=== PATIENT | female | born 2000 | race Caucasian/White ===

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

== ENCOUNTER 2021-04-02 10:22 | Emergency (ER) | payer BC ==
[~2021-04-02] VITALS: Ht 157.5 cm; Wt 65.9 kg
[~2021-04-02 10:22] MED LIST: CIPR-249 PO; PYRI1TAB5 PO; ZOLO50TA PO
--- OUTSIDE RECORDS SUMMARY | 2021-04-02 10:31 | CCD ---
Author Author [facility] Organization [facility] Address Unknown Phone Unavailable Care Team Providers Care Director Of Curriculum And Instruction Name Role Phone Aguiar, M Wilda PA-C Unavailable Unavailable Agiuar, M Wilda PA-C Unavailable Unavailable Aguiar, M Wilda PA-C Unavailable Unavailable Aguiar, M Wilda PA-C Unavailable Unavailable Aguiar, M Wilda PA-C Unavailable Unavailable Aguiar, M Wilda PA-C Unavailable Unavailable Aguiar, M Wilda PA-C Unavailable Unavailable Aguiar, M Wilda PA-C Unavailable Unavailable Aguiar, M Wilda PA-C Unavailable Unavailable Aguiar, M Wilda PA-C Unavailable Unavailable Aguiar, M Wilda PA-C Unavailable Unavailable Aguiar, M Wilda PA-C Unavailable Unavailable Aguiar, M Wilda PA-C Unavailable Unavailable Aguiar, M Wilda PA-C Unavailable Unavailable Aguiar, M Wilda PA-C Unavailable Unavailable Aguiar, M Wilda PA-C Unavailable Unavailable Aguiar, M Wilda PA-C Unavailable Unavailable Aguiar, M Wilda PA-C Unavailable Unavailable Aguiar, M Wilda PA-C Unavailable Unavailable Aguiar, M Wilda PA-C Unavailable Unavailable Aguiar, M Wilda PA-C Unavailable Unavailable Aguiar, M Wilda PA-C Unavailable Unavailable Aguiar, M Wilda PA-C Unavailable Unavailable Aguiar, M Wilda PA-C Unavailable Unavailable Aguiar, M Wilda PA-C Unavailable Unavailable Aguiar, M Wilda PA-C Unavailable Unavailable Aguiar, M Wilda PA-C Unavailable Unavailable Aguiar, M Wilda PA-C Unavailable Unavailable Aguiar, M Wilda PA-C Unavailable Unavailable Aguiar, M Wilda PA-C Unavailable Unavailable Aguiar, M Wilda PA-C Unavailable Unavailable Aguiar, M Wilda PA-C Unavailable Unavailable Aguiar, M Wilda PA-C Unavailable Unavailable Aguiar, M Wilda PA-C Unavailable Unavailable Aguiar, M Wilda PA-C Unavailable Unavailable Aguiar, M Wilda PA-C Unavailable Unavailable Aguiar, M Wilda PA-C Unavailable Unavailable Aguiar, M Wilda PA-C Unavailable Unavailable EDUARDA MUÑOZ MD Unavailable Unavai lable EDUARDA MUÑOZ MD Unavailable Unavai lable EDUARDA MUÑOZ MD Unavailable Unavai lable EDUARDA MUÑOZ MD Unavailable Unavai lable EDUARDA MUÑOZ MD Unavailable Unavai lable EDUARDA MUÑOZ MD Unavailable Unavai lable EDUARDA MUÑOZ MD Unavailable Unavai lable EDUARDA MUÑOZ MD Unavailable Unavai lable EDUARDA MUÑOZ MD Unavailable Unavai lable EDUARDA MUÑOZ MD Unavailable Unavai lable EDUARDA MUÑOZ MD Unavailable Unavai lable EDUARDA MUÑOZ MD Unavailable Unavai lable EDUARDA MUÑOZ MD Unavailable Unavai lable EDUARDA MUÑOZ MD Unavailable Unavai lable EDUARDA MUÑOZ MD Unavailable Unavai lable EDUARDA MUÑOZ MD Unavailable Unavai lable EDUARDA MUÑOZ MD Unavailable Unavai lable EDUARDA MUÑOZ MD Unavailable Unavai lable EDUARDA MUÑOZ MD Unavailable Unavai lable EDUARDA MUÑOZ MD Unavailable Unavai lable EDUARDA MUÑOZ MD Unavailable Unavai lable EDUARDA MUÑOZ MD Unavailable Unavai lable TONI, EDUARDA DERAS MD Unavailable Lise MUÑOZ, EDUARDA DERAS MD Unavailable Lise MUÑOZ, EDUARDA DERAS MD Unavailable Unavai lable Feola, T Gretel PA Unavailable Unavailable Feola, T Gretel PA Unavailable Unavailable Feola, T Gretel PA Unavailable Unavailable Feola, T Gretel PA Unavailable Unavailable Feola, T Gretel PA Unavailable Unavailable Feola, T Gretel PA Unavailable Unavailable Feola, T Gretel PA Unavailable Unavailable Feola, T Gretel PA Unavailable Unavailable Feola, T Gretel PA Unavailable Unavailable Feola, T Gretel PA Unavailable Unavailable Feola, T Gretel PA Unavailable Unavailable Feola, T Gretel PA Unavailable Unavailable Feola, T Gretel PA Unavailable Unavailable Feola, T Gretel PA Unavailable Unavailable Feola, T Gretel PA Unavailable Unavailable Feola, T Gretel PA Unavailable Unavailable Feola, T Gretel PA Unavailable Unavailable Feola, T Gretel PA Unavailable Unavailable Feola, T Gretel PA Unavailable Unavailable Feola, T Gretel PA Unavailable Unavailable Feola, T Gretel PA Unavailable Unavailable Feola, T Gretel PA Unavailable Unavailable Feola, T Gretel PA Unavailable Unavailable Feola, T Gretel PA Unavailable Unavailable Feola, T Gretel PA Unavailable Unavailable Feola, T Gretel PA Unavailable Unavailable Feola, T Gretel PA Unavailable Unavailable Feola, T Gretel PA Unavailable Unavailable Feola, T Gretel PA Unavailable Unavailable Feola, T Gretel PA Unavailable Unavailable Feola, T Gretel PA Unavailable Unavailable Feola, T Gretel PA Unavailable Unavailable Feola, T Gretel PA Unavailable Unavailable Feola, T Gretel PA Unavailable Unavailable Feola, T Gretel PA Unavailable Unavailable Feola, T Gretel PA Unavailable Unavailable Feola, T Gretel PA Unavailable Unavailable Feola, T Gretel PA Unavailable Unavailable Feola, T Gretel PA Unavailable Unavailable Feola, T Gretel PA Unavailable Unavailable Feola, T Gretel PA Unavailable Unavailable SEYMOUR, G EDWARD RPA Unavailable Unavailable SEYMOUR, G EDWARD RPA Unavailable Unavailable SEYMOUR, G EDWARD RPA Unavailable Unavailable SEYMOUR, G EDWARD RPA Unavailable Unavailable SEYMOUR, G EDWARD RPA Unavailable Unavailable SEYMOUR, G EDWARD RPA Unavailable Unavailable SEYMOUR, G EDWARD RPA Unavailable Unavailable SEYMOUR, G EDWARD RPA Unavailable Unavailable SEYMOUR, G EDWARD RPA Unavailable Unavailable SEYMOUR, G EDWARD RPA Unavailable Unavailable SEYMOUR, G EDWARD RPA Unavailable Unavailable SEYMOUR, G EDWARD RPA Unavailable Unavailable SEYMOUR, G EDWARD RPA Unavailable Unavailable SEYMOUR, G EDWARD RPA Unavailable Unavailable SEYMOUR, G EDWARD RPA Unavailable Unavailable SEYMOUR, G EDWARD RPA Unavailable Unavailable SEYMOUR, G EDWARD RPA Unavailable Unavailable SEYMOUR, G EDWARD RPA Unavailable Unavailable SEYMOUR, G EDWARD RPA Unavailable Unavailable SEYMOUR, G EDWARD RPA Unavailable Unavailable SEYMOUR, G EDWARD RPA Unavailable Unavailable SEYMOUR, G EDWARD RPA Unavailable Unavailable SEYMOUR, G EDWARD RPA Unavailable Unavailable SEYMOUR, G EDWARD RPA Unavailable Unavailable SEYMOUR, G EDWARD RPA Unavailable Unavailable SEYMOUR, G EDWARD RPA Unavailable Unavailable SEYMOUR, G EDWARD RPA Unavailable Unavailable SEYMOUR, G EDWARD RPA Unavailable Unavailable SEYMOUR, G EDWARD RPA Unavailable Unavailable SEYMOUR, G EDWARD RPA Unavailable Unavailable SEYMOUR, G EDWARD RPA Unavailable Unavailable SEYMOUR, G EDWARD RPA Unavailable Unavailable SEYMOUR, G EDWARD RPA Unavailable Unavailable SEYMOUR, G EDWARD RPA Unavailable Unavailable SEYMOUR, G EDWARD RPA Unavailable Unavailable GARIMA, L YUE MD Unavailable Unavailable GARIMA, L YUE MD Unavailable Unavailable GARIMA, L YUE MD Unavailable Unavailable GARIMA, L YUE MD Unavailable Unavailable GARIMA, L YUE MD Unavailable Unavailable GARIMA, L YUE MD Unavailable Unavailable GARIMA, L YUE MD Unavailable Unavailable GARIMA, L YUE MD Unavailable Unavailable GARIMA, L YUE MD Unavailable Unavailable GARIMA, L YUE MD Unavailable Unavailable GARIMA, L YUE MD Unavailable Unavailable GARIMA, L YUE MD Unavailable Unavailable GARIMA, L YUE MD Unavailable Unavailable GARIMA, L YUE MD Unavailable Unavailable GARIMA, L YUE MD Unavailable Unavailable GARIMA, L YUE MD Unavailable Unavailable GARIMA, L YUE MD Unavailable Unavailable GARIMA, L YUE MD Unavailable Unavailable GARIMA, L YUE MD Unavailable Unavailable GARIMA, L YUE MD Unavailable Unavailable Re-disclosure Warning The records that you are about to access may contain information from federally-assisted alcohol or drug abuse programs. If such information is present, then the following federally mandated warning applies: This information has been disclosed to you from records protected by federal confidentiality rules (42 CFR part 2). The federal rules prohibit you from making any further disclosure of this information unless further disclosure is expressly permitted by the written consent of the person to whom it pertains or as otherwise permitted by 42 CFR part 2. A general authorization for the release of medical or other information is NOT sufficient for this purpose. The Federal rules restrict any use of the information to criminally investigate or prosecute any alcohol or drug abuse patient.The records that you are about to access may contain highly sensitive health information, the redisclosure of which is protected by Article 27-F of the [facility] Public Health law. If you continue you may have access to information: Regarding HIV / AIDS; Provided by facilities licensed or operated by the [facility] Office of Mental Health; or Provided by the [facility] Office for People With Developmental Disabilities. If such information is present, then the following [facility] mandated warning applies: This information has been disclosed to you from confidential records which are protected by state law. State law prohibits you from making any further disclosure of this information without the specific written consent of the person to whom it pertains, or as otherwise permitted by law. Any unauthorized further disclosure in violation of state law may result in a fine or usp sentence or both. A general authorization for the release of medical or other information is NOT sufficient authorization for further disc losure. Allergies and Adverse Reactions Type Description Substance Reaction Status Data Source(s ) Propensity to adverse reactions BACTRIM BACTRIM ANAPHYLAXIS [facility] Propensity to adverse reactions SULFA (sulfonamide) SULFA (sulfo namide) ANAPHYLAXIS [facility] Family History Family Member Name Family Member Gender Family Member Status Date o f Status Description Data Source(s) Unknown Male Problem [facility] ([facility]) Encounters Encounter Providers Location Date Indications Data Source(s ) Outpatient Attender: Wilda BALDWIN-CConsultant: AUGUSTA MITCHELL MD 10/16/2020 06:53:00 PM EDT - 10/16/2020 07:53:00 PM EDT [facility] Outpatient Attender: PAUL SEYMOUR RPA 10/12 03:36:20 PM EDT - 10/12/2020 04:13:08 PM EDT [facility] ([facility] ) Outpatient Attender: Gretel BALDWIN 02:42:42 PM EST - 08/18/2020 03:41:54 PM EST [facility] ([facility] ) Outpatient Attender: Wilda GAYTANCConsultant: AUGUSTA MITCHELL MD 08/01/2020 01:07:00 PM EST - 08/01/2020 01:07:00 PM [facility] Outpatient Attender: Wilda GAYTANCConsultant: AUGUSTA MITCHELL MD 06/02/2020 04:36:00 PM EST - 06/02/2020 05:36:00 PM [facility] Outpatient Attender: Wilda GAYTANCConsultant: AUGUSTA MITCHELL MD 05/30/2020 02:47:00 PM EST - 05/30/2020 02:47:00 PM [facility] Emergency Attender: YUE PAINTING MDConsultant: AUGUSTA DIALLO MD 02/23/2020 05:02:00 PM EDT - 02/23/2020 05:40:00 PM EDT [facility] Patient discharged. Immunizations Vaccine Date Status Description Data Source(s) COVID-19 VACCINE Moderna 03/03/2021 12:00:00 AM EDT completed [facility] Vaccine Series Complete: NOThis Data was Submitted to [facility] Via [employer]. Medications Medication Brand Name Start Date Product Form Dose Route Admi nistrative Instructions Pharmacy Instructions Status Indications Reaction Description Data Source(s) 875-125 mg 02/23/2020 12:00:00 AM EDT tablet 20 TAKE ONE TABLET BY MOUTH TWICE A DAY TAKE ONE TABLET BY MOUTH TWICE A DAY SOLD: 02/24/2020 [facility] 1.5 mg-30 mcg (21)/75 mg (7) 01/10/2020 12:00:00 AM EDT tabl et 28 TAKE 1 TABLET BY MOUTH ONCE DAILY FOR 21 DAYS, OFF THE 4TH WEEK TO CYCLE TAKE 1 TABLET BY MOUTH ONCE DAILY FOR 21 DAYS, OFF THE 4TH WEEK TO CYCLE SOLD: 02/13/2020 [facility] DORA Fe 1.5/30 28 Day Pack 1.5 mg-30 mcg (21)/75 mg ( 7) NORETHINDRONE-E.ESTRADIOL-IRON 01/10/2020 12:00:00 AM EDT tablet 28 TAKE 1 TABLET BY MOUTH ONCE DAILY FOR 21 DAYS, OFF THE 4TH WEEK TO CYCLE TAKE 1 TABLET BY MOUTH ONCE DAILY FOR 21 DAYS, OFF THE 4TH WEEK TO CYCLE SOLD: 10/16/2020 [facility] 1.5 mg-30 mcg (21)/75 mg (7) 01/10/2020 12:00:00 AM EDT tabl et 28 TAKE 1 TABLET BY MOUTH ONCE DAILY FOR 21 DAYS, OFF THE WEEK TO CYCLE TAKE 1 TABLET BY MOUTH ONCE DAILY FOR 21 DAYS, OFF THE WEEK TO CYCLE SOLD: 03/17/2020 [facility] 1.5 mg-30 mcg (21)/75 mg (7) 01/10/2020 12:00:00 AM EDT tabl et 28 TAKE 1 TABLET BY MOUTH ONCE DAILY FOR 21 DAYS, OFF THE WEEK TO CYCLE TAKE 1 TABLET BY MOUTH ONCE DAILY FOR 21 DAYS, OFF THE WEEK TO CYCLE SOLD: 05/30/2020 [facility] 1.5 mg-30 mcg (21)/75 mg (7) 01/10/2020 12:00:00 AM EDT tabl et 28 TAKE 1 TABLET BY MOUTH ONCE DAILY FOR 21 DAYS, OFF THE WEEK TO CYCLE TAKE 1 TABLET BY MOUTH ONCE DAILY FOR 21 DAYS, OFF THE WEEK TO CYCLE SOLD: 08/04/2020 [facility] Insurance Providers Payer name Policy type / Coverage type Policy ID Covered alliance party ID Covered alliance party's relationship to ritter Policy Ritter Plan Information BLUE CARD C [id number] Child [id number] EXCELLUS C [id number] Child [id number] BLUE CARD C [id number] Child [id number] Blue Cross Blue Shield Commercial [id number] Family Dependent R [id number] Blue Cross Blue Shield Commercial [id number] Family Dependent R [id number] emere Cross Blue Shield Commercial [id number] Family Dependent R [id number] emere Cross Blue Shield Commercial [id number] Family Dependent R [id number] BLUE CROSS BLUE SHIELD CO [id number] 19 [id number] BH SBHC BLUE CROSS BS CO [id number] 19 [id number] BH Blue Cross Blue Shield Commercial [id number] Family Dependent R [id number] Excell[employer] Blue Cross and Blue Shield - [place] Blue Cross/B lue Shield [id number] Parent [id number] Blue Cross Blue Shield Commercial [id number] Family Dependent R [id number] ANSI-Commercial [id number] ANSI-Not a Secondary Insurance [id number] Blue Cross Blue Shield Commercial [id number] Family Dependent R [id number] Blue Cross Blue Shield Commercial [id number] Family Dependent R [id number] Blue Cross Blue Shield Commercial [id number] Family Dependent R [id number] Blue Cross Blue Shield Commercial [id number] Family Dependent R [id number] Blue Cross Blue Shield Commercial [id number] Family Dependent R [id number] Blue Cross Blue Shield Commercial [id number] Family Dependent R [id number] Blue Cross Blue Shield Commercial [id number] Family Dependent R [id number] [facility] [id number] 19 [id number] [facility] FEDERAL -O/P [id number] EXCELLUS [place] FEP BS [id number] 19 [id number] [facility] FEDERAL -[facility] [id number] 19 [id number] [facility] SHIELD [id number] 19 [id number] [facility] SHIELD -O/P CO [id number] 19 [id number] [facility] FEDERAL EMPLOYEE PROGRAM [id number] [id number] Blue [place] Blue Shield Commercial [id number] Family Dependent R [id number] Blue Cross Blue Shield Commercial [id number] Family Dependent R [id number] [facility] Blue Shield Commercial [id number] Family Dependent R [id number] [place] Blue Shield Commercial [id number] Family Dependent R [id number] [facility] CO [id number] 19 [id number] Problems, Conditions, and Diagnoses Code Display Name Description Problem Type Effective Dates Data Source(s) R221 Localized swelling, mass and lump, neck Localized swelling, mass and lump, neck Diagnosis 10/16/2020 06:53:00 PM EDT [facility] Z23 Encounter for immunization Encounter for immunization Diagnosis 05/30/2020 02:47:00 PM EST [facility] J020 Streptococcal pharyngitis Streptococcal pharyngitis Di agnosis 02/23/2020 05:02:00 PM EDT [facility] J029 Acute pharyngitis, unspecified Acute pharyngitis, unsp ecified Diagnosis 02/23/2020 05:02:00 PM EDT [facility] Surgeries/Procedures No Information Results ID Date Data Source [id number] 11/25/2020 12:42:00 PM EDT [facility] Name Value Range Interpretation Code Description Data Lou rce(s) Supporting Document(s) SARS-CoV-2 (COVID-19) RNA [Presence] in Respiratory specimen by ЕКАТЕРИНА with probe detection Not Detected [facility] This lab was ordered by [facility] and reported by [employer]. ID Date Data Source [id number] 10/17/2020 11:21:00 AM EDT [facility] [address] [place] [address] PHONE: [phone] FAX: [phone] Name .................. : NAPOLEON Keen Acct Number.................. : [id number] ROOM. ................. : Number ................... : [id number] Stay type ............. : O/P Discharge Date......... ... : 10/16/20 Admit Date ......... : 10/16/20 Admit Phys .................... : INGRAMELIS Date of ....... : 2000 Family Phys ................... : TONI BAKER Phone .................. : [phone] Age ................................ : 20 Film# .................. .:[id number] Sex ................................. : F Unsigned transcriptions are preliminary reports and do not represent a medical or legal document SOFT TISSUE HEAD/NECK 52046 COMPLETE:10/16/20 19:22 ADB 50594 Reason for Exam: SWELLING, MASS/LUMP NECK ULTRASOUND OF SOFT TISSUES OF THE NECK: INDICATION: Swelling. FINDINGS: Focused rowan scale ultrasound was performed. In the area of concern in the right lateral neck, there is a lymph node measuring 2.2 x 1.6 x 0.5 cm. There is also a second lymph node measuring 2.1 x 1.5 x 0.3 cm. On the prior examination, there was a 2.1 x 1.5 x 0.4 cm lymph node on June 02, 2020. IMPRESSION: Compared to the prior examination, there are two prominent lymph nodes. Based on short axis measurements, these are not enlarged by size criteria, but they are certainly more prominent than normal. Electronically Reviewed and Signed By Rajeev Borgse M.D. , 10/17/20 11:21, [facility] Transcribe Initials: EZEKIEL , Transcribe Date: 10/16/20 23:15, Dictation Date: Copy for: TY Zarate via fax Copy for: [facility] REC Page 1 of 1 Name Value Range Interpretation Code Description Data Lou rce(s) Supporting Document(s) ID Date Data Source [id number] 10/14/2020 05:04:00 PM EDT [facility] Name Value Range Interpretation Code Description Data Lou rce(s) Supporting Document(s) COVID-19 RT-PCR TREE PLANTER SWAB Not Detected Not Detected [facility] A not detected (negative) test result fo r this test means that SARS-CoV-2 RNA was not present in the specimen above the limit ofdetection. Laboratory test results should always be considered in thecontext of clinical observations and epidemiological data in making afinal diagnosis and patient management decisions. Results will bereported to government agencies as required.This test has received Emergency Use Authorization (EUA). We will continue to follow federal and state requirements for COVID-19 reporting. This test has been authorized only for the detection of RNAfrom SARS-CoV-2 virus and diagnosis of SARS-CoV-2 virus infection, notfor any other viruses or pathogens. This test is only authorized for the duration of the declaration that circumstances exist justifying the authorization of the emergency use of in vitro diagnostic tests for detection of SARS-CoV-2 virus and/or diagnosis of SARS-CoV-2 virusinfection under section 564(b)(1) of the Act, 21 U.S.C. section 360bbb-3(b)(1), unless the authorization is terminated or revoked sooner. We will continue to follow federal and state requirements for both notification of results and any confirmatory testing that is required by another agency. This test was developed and its performance characteristics determined by [employer] and verified at [facility]. It has not been cleared or approved by the U.S. Food and Drug Administration for diagnostic use. This test has been authorized by FDA under an EUA for use by authorized laboratories. Results should be used in conjunction with clinical findings, and should not form the sole basis for a diagnosis or treatment decision. Methods: SARS-CoV-2 Multiplex RT-PCR Assay ID Date Data Source [id number] 10/12/2020 03:45:00 PM EDT [facility] Name Value Range Interpretation Code Description Data Lou rce(s) Supporting Document(s) SARS-CoV-2 (COVID-19) N gene [Presence] in Respiratory specimen by ЕКАТЕРИНА with probe detection NEGATIVE [facility] This lab [facility] and reported by [facility]. ID Date Data Source [id number] 10/12/2020 12:00:00 AM EDT [facility] Name Value Range Interpretation Code Description Data Lou rce(s) Supporting Document(s) Carestart Rapid COVID Antigen Test Negative [facility] This lab was reported by [facility]. ID Date Data Source [id number] 08/19/2020 06:39:00 PM EST [facility] Name Value Range Interpretation Code Description Data Lou rce(s) Supporting Document(s) BHD COVID-19 RT-PCR TREE PLANTER SWAB Not Detected Not Detected [facility] This test has received Emergency Use Aut horization (EUA). We willcontinue to follow federal and state requirements for COVID-19reporting. This test was developed and its performance characteristicsdetermined by [facility]. It has not been cleared orapproved by the U.S. Food and Drug Administration but has been givenemergency use authorization. Results should be used in conjunctionwith clinical findings and should not form the sole basis for adiagnosis or treatment decision. Methods: SARS-CoV-2 Multiplex RT-PCRAssayA not detected (negative) test result for this test means that SARS-CoV-2 RNA was not present in the specimen above the limit ofdetection. Laboratory test results should always be considered in thecontext of clinical observations and epidemiological data in making afinal diagnosis and patient management decisions. Results will bereported to government agencies as required. ID Date Data Source [id number] 08/18/2020 02:45:00 PM EST [facility] Name Value Range Interpretation Code Description Data Lou rce(s) Supporting Document(s) SARS coronavirus 2 RNA [Presence] in Res piratory specimen by ЕКАТЕРИНА with probe detection NEGATIVE [facility] This lab was ordered by Dileep Nicole and reported by [facility]. ID Date Data Source [id number] 08/18/2020 12:00:00 AM EST [facility] Name Value Range Interpretation Code Description Data [facility] rce(s) Supporting Document(s) Carestart Rapid COVID Antigen Test Negative [facility] This lab was reported by [facility]. ID Date Data Source [id number] 06/17/2020 12:00:00 AM EST [facility] Name Value Range Interpretation Code Description Data Lou e(s) Supporting Document(s) SARS coronavirus 2 RNA [Presence] in Res piratory specimen by ЕКАТЕРИНА with probe detection NEGATIVE [facility]anda[facility] and reported by [facility]. ID Date Data Source [id number] 06/04/2020 09:16:00 AM EST [facility] [address] [place] [address] PHONE: [phone] FAX: [phone] Name .................. : NAPOLEON Keen Acct Number.................. : [id number] ROOM. ................. : MR Number ................... : [id number] Stay type ............. : O/P Discharge Date......... ... : 06/02/20 Admit Date ......... : 06/02/20 Admit Phys .................... : INGRAMELIS Date of ....... : 2000 Family Phys ................... : TONI BAKER Phone .................. : [phone] Age ................................ : 19 Film# .................. .:[id number] Sex ................................. : F Unsigned transcriptions are preliminary reports and do not represent a medical or legal document SOFT TISSUE HEAD/NECK 85161 COMPLETE:06/02/20 17:06 ADB 669 (REASON FOR PROCEDURE SMALL FIRM MOVEABLE MASS RIGHT POSTERIOR NECK SOFT TISSUE NECK ULTRASOUND: CLINICAL HISTORY: Small firm moveable mass right posterior neck. FINDINGS: History by technologist states lump x3 years increasing in size. Recent history of mono. No known injury and no surgery. The area of clinical concern is sonographically interrogated. There is an ovoid, smooth wider than tall hypoechoic nodule with some internal vascularity present in the right lateral neck. This measures 2.1 x 1.5 x 0.4 cm and I question whether this may represent a lymph node. There are no other masses/findings. IMPRESSION: 2.1 cm ovoid smoothly marginated nodule with some intrinsic vascularity for which the possibility that this is a lymph node is raised. Please Correlate clinically. Short term follow up re- evaluation would be suggested or as otherwise clinically indicated. Electronically Reviewed and Signed By Ericka Raya MD , 06/04/20 09:16, JAKUB Transcribe Initials: EZEKIEL , Transcribe Date: 06/02/20 22:29, Dictation Date: Copy for: TY Zarate via fax Copy for: [address] [place] [address] REC Page 1 of 1 Name Value Range Interpretation Code Description Data Lou rce(s) Supporting Document(s) ID Date Data Source [id number] 02/23/2020 05:02:00 PM EDT [facility] 1 OrderSheet [facility] Emergency Department [address] [place] [address] Phone #: ext- [phone] 02/23/2020 16:55 Patient: JHON BENDER Sex: F : 2000 Age: 19yWEIGHT:65.7 kg (S) HEIGHT:62 inches (S) BMI:26.5ALLERGIES: Sulfa AntibioticsCHIEF COMPLAINT: sore throatDIAGNOSIS: PharyngitisLAB ORDERSOrder Description Priority Entered Acknowledged InitialedRapid Strep Screen STAT 17:02 02/23/2020 17:02 Elva Stevenson Jennifer Jennifer R.NTung R.N.; Verbal order per; Danial Johnston PADIAGNOSTIC STUDY ORDERSOrder Description Priority Entered Acknowledged InitialedMEDICATION/IV/DRIP/FLUID ORDERSOrder Description Priority Entered Acknowledged InitialedGENERAL ORDERSOrder Description Priority Entered Acknowledged In itialed[Electronically signed by Rajwinder Stevenson R.N. (17:50 02/23/2020)][Electronically signed by Danial Johnston (21:41 02/23/2020)][Electronically locked by Rajwinder Stevenson R.N. (17:50 02/23/2020)] Name Value Range Interpretation Code Description Data Lou rce(s) Supporting Document(s) ID Date Data Source [id number] 02/23/2020 05:02:00 PM EDT [facility] 1 Medication Reconciliation Report [facility] Emergency Department [address] [place] [address] Phone #: ext- [phone] 02/23/2020 16:55 Patient: JHON BENDER Sex: F : 2000 Age: 19yWeight: 65.7 kgHeight/Length: 62 in.BMI: 26.5ALLERGIES: Sulfa AntibioticsThe patient's Home Medications are listed below:CONTINUE TAKING THE FOLLOWING MEDICATIONS: Cranberry OralThe source(s) of the original Home Medication information:patientThe following Medications were given to the patient in the Emergency Department:None.The following Medications were prescribed to the patient:Augmentin 875 mg-125 mg tablet Take 1 tablet twice a day as directed for 10 days -- Dispense 20tablet. Refills: 0. Substitution permitted.Pharmacy - [id number] - [address], [place] [phone]. . -- NICOLASA Horton Name Value Range Interpretation Code Description Data Lou rce(s) Supporting Document(s) ID Date Data Source [id number] 02/23/2020 05:02:00 PM EDT [facility] 1 Medication Administration Record [facility] Emergency Department [address] [place] [address] Phone #: ext- [phone] 02/23/2020 16:55 Patient: JHON BENDER Sex: F : 2000 Age: 19yWeight: 65.7 kgHeight/Length: 62 inBMI: 26.5ALLERGIES: Sulfa AntibioticsDate/Time Medication Administered Medication Ordered Name Value Range Interpretation Code Description Data Lou rce(s) Supporting Document(s) ID Date Data Source [id number] 02/23/2020 05:02:00 PM EDT [facility] 1 General Instructions [facility] Emergency Department [address] [place] [address] Phone #: ext- [phone] 02/23/2020 16:55 Patient: JHON BENDER Osmani Sex: F : 2000 Age: 19yAcute streptococcal pharyngitis.INSTRUCTIONSYour Current Medications: Your current home medications have been reviewed.CONTINUE TAKING THE FOLLOWING MEDICATIONS:Cranberry Oral.Prescription Medications:Augmentin 875 mg-125 mg tablet Take 1 tablet twice a day as directed for 10 days -- Dispense 20tablet. Refills: 0. Substitution permitted.Pharmacy - [id number] - [address] [facility] ; [place], [place] [phone]. .Follow-up:Follow up with your doctor Tuesday if not better. Reason for referral: evaluation and treatment. Summary ofcare provided to patient.Understanding of the discharge instructions verbalized by patient. ADDITIONAL INFORMATIONPharyngitis: Strep (Presumed) 2 General Instructions [facility] Emergency Department [address] [place] [address] Phone #: ext- [phone] 02/23/2020 16:55 [id number] Sex: [facility] : 2000 Age: 19yYou have pharyngitis (sore throat). The healthcare staff think your sore throat is caused bystreptococcus (strep) bacteria. This is often called strep throat. Strep throat can cause throat pain thatis worse when swallowing, aching all over, headache, and fever. The infection is contagious. It maybe spread by coughing, kissing, or touching others after touching your mouth or nose. Antibioticmedicine is given to treat the infection. 3 General Instructions [facility] Emergency Department [address] [place] [address] Phone #: ext- [phone] 02/23/2020 16:55 [id number] Sex[facility] F : 2000 Age: 19yHome care Rest at home. Drink plenty of fluids so you won't get dehydrated. Stay home from work or school for the first 2 days of taking the antibiotics. After this time, you will not be contagious. You can then return to work or school if you are feeling better. Take the antibiotic medicine for the full 10 days, even when you feel better. This is very important to make sure the infection is fully treated. It is also important to prevent medicine-resistant germs from growing. If you were given an antibiotic shot, no more antibiotics are needed. You may use acetaminophen or ibuprofen to control pain or fever, unless another medicine was prescribed for this. If you have chronic liver or kidney disease or ever had a stomach ulcer or GI bleeding, talk with your healthcare provider before using these medicines. Use throat lozenges or a throat-numbing spray to help reduce throat pain. Gargling with warm salt water can also help reduce throat pain. Dissolve 1/2 teaspoon of salt in 1 glass of warm water. Don't eat salty or spicy foods. These can irritate the throat.Follow-up careFollow up with your healthcare provider or our staff if you don't get better over the next week.When to seek medical adviceCall your healthcare provider right away if any of these occur: Fever as directed by your healthcare provider New or worse ear pain, sinus pain, or headache Painful lumps in the back of neck Stiff neck Lymph nodes that get larger Can't swallow liquids, a lot of drooling, or can't open mouth wide due to throat pain Signs of dehydration, such as very dark urine or no urine, sunken eyes, dizziness Trouble breathing or noisy breathing Muffled voice New rash 4 General Instructions [facility] Emergency Department [address] [place] [address] Phone #: ext- [phone] 02/23/2020 16:55 Patient: JHON BENDER Sex: F : 2000 Age: 19yPreventionHere are steps you can take to help prevent an infection: Keep good hand washing habits. Don't have close contact with people who have sore throats, colds, or other upper respiratory infections. Don't smoke, and stay away from secondhand smoke. Stay up to date with of your vaccines. [id number] [employer]. [address] [place] [address]. All rights reserved. This information is not intended as asubstitute for professional medical care. Always follow your [facility] professional's instructions. You have been given the following additional information: Pharyngitis, Strep (Presumed)(Electronically signed by NICOLASA Horton 02/23/2020 21:41) Name Value Range Interpretation Code Description Data Lou rce(s) Supporting Document(s) ID Date Data Source [id number] 02/23/2020 05:02:00 PM EDT [facility] 1 Clinical Report - Nurses [facility] Emergency Department [address] [place] [address] Phone #: ext- [phone] 02/23/2020 16:55 [id number] Sex[facility] F : 2000 Age: 19yTRIAGEArrived by private vehicle. Historian: patient.Triage time: 16:56 02/23/2020. Acuity: LEVEL 4.Chief Complaint: (Tonsillits).Alert. No acute distress.Onset. (2-3 days ago). 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 Sepsis Screen negative. No suspected or confirmed signs ofinfection present. (17:00 02/23/2020). --17:00 02/23/20 Rajwinder Stevenson R.N.16:56 02/23/20. BP: 108/79. MAP: 88. HR: 100. RR: 18. O2 saturation: 96% on room air. Temp: 99.2 F(temporal). Pain level now: 07/23. --17:00 02/23/20 Rajwinder Stevenson R.N.Weight: 65.7 kg stated. Height/Length: 62 inches Per Patient. BMI: 26.5. --16:56 02/23/20 Rajwinder Stevenson R.N.MedicationsCranberry Oral. --16:57 02/23/20 Rajwinder Stevenson R.N.AllergiesSulfa Antibiotics. --16:57 02/23/20 Rajwinder Stevenson R.N.PROBLEMS:Tonsil stones. --16:57 02/23/20 Rajwinder Stevenson R.N.Medication/allergy information source: the patient. --17:00 02/23/20 Rajwinder Stevenson R.N.ADDITIONAL SURGERIES:Breast reduction.Dental Surgery. --16:57 02/23/20 Rajwinder Stevenson R.N.HistoryPAST MEDICAL HX: Immunizations: up-to-date. Last normal menstrual period- 02/11/2020.SOCIAL HX: Never smoker. No alcohol use or drug use. She was offered HIV testing but declined.Patient education was provided. She was offered hepatitis C testing but declined. Patient education was 2 Clinical Report - Nurses [facility] Emergency Department [address] [place] [address] Phone #: ext- [phone] 02/23/2020 16:55 Patient: JHON BENDER Sex: F : 2000 Age: 19y provided. ( COVID screen negative). She has not traveled outside the [place] Infectious disease exposure: No infectious disease exposure. Patient is not a known carrier of tuberculosis, hepatitis, HIV, MRSA or VRE. Patient is not a known carrier of CRE. SELF HARM ASSESSMENT: Self harm assessment was performed. The patient answered "no" to the question(s) "Do you have thoughts of harming or killing yourself?" and "Do you have a plan for harming or killing yourself?". ABUSE ASSESSMENT: Abuse assessment. The patient had positive responses to the question(s) "Do you feel safe in your home?". Abuse denied. No suspicion of abuse. No report of abuse. NUTRITIONAL RISK ASSESSMENT: The nutritional risk assessment revealed no deficiencies. FUNCTIONAL ASSESSMENT: Functional assessment: no impairments noted. LEARNING NEEDS ASSESSMENT: The learning needs assessment revealed no barriers. FALL RISK ASSESSMENT: Fall risk assessment completed. No risk factors identified. SKIN INTEGRITY ASSESSMENT: Skin integrity risk assessment completed. No skin integrity risk identified. --17:00 02/23/20 Rajwinder Stevenson R.N. Interventions Identification band on patient. --17:00 02/23/20 Rajwinder Stevenson R.N.PHYSICAL ASSESSMENTAmbulatory to room.GENERAL / NEURO / PSYCH: Alert. Oriented X 4. Appears in no acute distress.HEENT: Posterior, right-sided and left-sided pharyngeal erythema with right tonsillar exudate and lefttonsillar exudate.RESPIRATORY: Respirations not labored.SKIN: Skin intact. Skin is warm and dry. Normal skin turgor. --17:01 02/23/20 Rajwinder Stevenson R.N.NURSING PROGRESS NOTESReassurance given. Three patient identifiers checked. Call light placed in reach. Side rails up x 2. Bedplaced in lowest position. Brakes of bed on. Patient ready for evaluation- PA notified. --17:02 02/23/20Rajwinder Stevenson R.N. Patient ID band checked for patient name and birthdate: patient confirmed. Throat swab obtained by nurse for rapid strep; labeled in the presence of the patient and sent to lab. --17:02 02/23/20 Rajwinder Stevenson R.N.DISPOSITION / DISCHARGE Departure time: 17:40 02/23/2020. Condition at departure: stable. No learning barriers present. 3 Clinical Report - Nurses [facility] Emergency Department [address] [place] [address] Phone #: ext- [phone] 02/23/2020 16:55 Patient: JHON BENDER Sex: F : 2000 Age: 19y Discharge instructions provided and reviewed with the patient. Reviewed warnings (please see paper copy). Reviewed medication(s) side effects, precautions, dosing and course information (augmentin). Patient verbalized understanding. Written instructions provided in Tristanian. The patient was discharged by the physician assistant chief train dispatcher. She was discharged home and unaccompanied at time of discharge. She left ambulatory and via private vehicle. Patient driving. --17:50 02/23/20 Rajwinder Stevenson R.N. 17:40 02/23/20. BP: 103/70. MAP: 81. HR: 83. RR: 18. O2 saturation: 100% on room air. Temp: 99 F (temporal). Pain level now deferred. --17:50 02/23/20 Rajwinder Stevenson R.N.Locked/Released at 02/23/2020 17:50 by Rajwinder Stevenson R.N. Name Value Range Interpretation Code Description Data Lou rce(s) Supporting Document(s) ID Date Data Source [id number] 02/23/2020 05:02:00 PM EDT [facility] 1 Clinical Report - Physicians/Mid Levels [facility] Emergency Department [address] [place] [address] Phone #: ext- [phone] 02/23/2020 16:55 Patient: JHON BENDER Sex: F : 2000 Age: 19y Time Seen: 17:02 02/23/2020. Arrived- By private vehicle. Historian- patient.HISTORY OF PRESENT ILLNESS Chief Complaint: SORE THROAT. This started 2 - 3 days ago; Pt states she has had tonsil stones in the past and had similar symptoms and when looking at her throat she noticed there are tonsil stones bilaterally and is still present. It was abrupt in onset and has been constant. Pain described as mild. The patient has had a sore throat. No mouth sores, nasal discharge or congestion, ear pain or toothache. No swollen jaw or face, jaw pain or facial pain. Similar symptoms previously. Patient has had similar symptoms several times. Recent medical care: Not recently seen/assessed.REVIEW OF SYSTEMSLast normal menstrual period- Feb 15. No fever, eye discomfort, cough, difficulty breathing or chest pain.No nausea, diarrhea, abdominal pain, difficu lty with urination or headache. No fainting episodes, jointpain, skin rash, enlarged lymph nodes or vomiting.PAST HISTORYProblems:Tonsil stones. Additional Surgeries: Breast reduction. Dental Surgery. Medications: Cranberry Oral. Allergies: Sulfa Antibiotics.SOCIAL HISTORYNever smoker. No alcohol use or drug use.PHYSICAL EXAMVital Signs: 02/23/2020 16:56 BP: 108/79. MAP: 88. HR: 100. RR: 18. O2 saturation: 96% on room air.Temp: 99.2 F. Pain level now: 07/23. Have been reviewed as normal. Oxygen saturation normal.Appearance: Alert. No acute distress.Head: Normal external inspection. 2 Clinical Report - Physicians/Mid Levels [facility] Emergency Department [address] [place] [address] Phone #: ext- [phone] 02/23/2020 16:55 Patient: JHON BENDER Sex: F : 2000 Age: 19y Eyes: Pupils equal, round and reactive to light. Conjunc tivae and eyelids normal. ENT: Ears normal. Nose normal. Pharyngeal erythema. Tonsillar exudate present. Lips normal. Gums normal. No trismus present. Uvula midline. Neck: Normal inspection. Trachea midline. No adenopathy. Thyroid normal. Neck supple. CVS: Normal heart rate. Heart sounds normal. Respiratory: No respiratory distress. Breath sounds normal. Abdomen: Soft and nontender. No organomegaly. Skin: Normal skin color. No rash. Normal skin turgor. Extremities: Extremities nontender. Neuro: Oriented X 3.LABS, X-RAYS, AND EKGLaboratory Tests: Laboratory tests have been ordered, with results reviewed and considered in themedical decision making process. Rapid Strep Screen: (CARMENCITA: 02/23/2020 17:00) ( MsgRcvd 02/23/2020 17:22) Final results Test Result Flag Units (Reference) RAPID STREP NEGATIVE (NORMAL: NEGAT RAPID STREP R EENTER NEGATIVE (NORMAL: NEGAT { PROCEDURAL CONTROL VALID ){ KIT LOT # [id number] ){ KIT EXP DATE 02.20.21 )The Strep A 2 assay utilizes isothermal nucleic acid amplification technology fothe qualitative detection of Group A Strep bacterial nucleic acid in throat swabspecimens.All negative test results no longer need to be confirmed with a culture. Follow-up testing requiring a culture is necessary if clinical symptoms persist, or inthe event of an acute rheumatic fever outbreak. A culture will need to beordered by the Qualified Medical Provider.Negative results do not preclude infection with Group A Strep and should not beused as the sole basis for treatment..PROGRESS AND PROCEDURESCourse of Care: 17:38 Feb 23 2020. Evaluation after observation. (Discussed neg strep will treat due toexam findings and pt is agreeable with dx and tx plan.). Patient counseled in person regarding the patient's stable condition, test results, diagnosis and need for follow-up. Patient agrees with plan of care. 17:39 Feb 23 2020. Disposition: Discharged home in good and improved condition (17:39 Feb 23 2020).CLINICAL IMPRESSION Acute streptococcal pharyngitis.INSTRUCTIONS Your Current Medications: Your current home medications have been reviewed. 3 Clinical Report - Physicians/Mid Levels [facility] Emergency Department [address] [place] [address] Phone #: ext- [phone] 02/23/2020 16:55 Patient: JHON BENDER Sex: F : 2000 Age: 19y CONTINUE TAKING THE FOLLOWING MEDICATIONS: Cranberry Oral. Prescription Medications: Augmentin 875 mg-125 mg tablet Take 1 tablet twice a day as directed for 10 days -- Dispense 20 tablet. Refills: 0. Substitution permitted. Pharmacy - [id number] - [address], [place] [phone]. . Follow-up: Follow up with your doctor Tuesday if not better. Reason for referral: evaluation and treatment. Summary of care provided to patient. Understanding of the discharge instructions verbalized by patient.(Electronically signed by NICOLASA Horton 02/23/2020 21:41) Name Value Range Interpretation Code Description Data Lou rce(s) Supporting Document(s) ID Date Data Source [id number] 02/23/2020 05:22:00 PM EDT [facility] Name Value Range Interpretation Code Description Data Lou rce(s) Supporting Document(s) RAPID STREP NEGATIVE NORMAL: NEGATIVE [facility] RAPID STREP REENTER NEGATIVE NORMAL: NEGATIVE [facility] { PROCEDURAL CONTROL VALID ){ KIT LOT # [id number] ){ KIT EXP DATE 02.20.21 )The Strep A 2 assay utilizes isothermal nucleic acid amplification technology fothe qualitative detection of Group A Strep bacterial nucleic acid in throat swabspecimens.All negative test results no longer need to be confirmed with a culture. Follow-up testing requiring a culture is necessary if clinical symptoms persist, or inthe event of an acute rheumatic fever outbreak. A culture will need to beordered by the Qualified Medical Provider.Negative results do not preclude infection with Group A Strep and should not beused as the sole basis for treatment. Procedure Social History No Information Vital Signs ID Date Data Source UNK Name Value Range Interpretation Code Description Data Source(s) Systolic blood pressure 116 mm[Hg] 116 mm[Hg] [facility] ([facility]) Diastolic blood pressure 78 mm[Hg] 78 mm[Hg] [facility] ([facility]) Heart rate 90 /min 90 /min [facility] ([facility]) Body temperature 98.6 [degF] 98.6 [degF] [facility] ([facility]) Respiratory rate 16 /min 16 /min [facility] ( [facility]) Oxygen saturation in Arterial blood by Pulse oximetry 99 % 99 % [facility] ([facility]) Body weight 145.00 [lb_av] 145.00 [lb_av] MEDEN T ([facility]) Body weight 65.772 kg 65.772 kg [facility] ([facility]) Body height 62 [in_i] 62 [in_i] [facility] ([facility]) 5'2" Body height [Percentile] 18 % 18 % [facility] ([facility]) Body mass index (BMI) [Ratio] 26.5 kg/m2 26.5 k g/m2 [facility] ([facility]) Body mass index (BMI) [Percentile] 85 % 8 5 % [facility] Body surface area Derived from formula 1.67 m2 1.67 m2 [facility] ([facility])
[2021-04-02] MEDS ORDERED: ONDA4TAB6 PO (11:14)
[2021-04-02] MEDS ORDERED: ONDANSETRON 4 MG ORAL DISINTEGRATING TAB PO ONE (11:15)
[2021-04-02 11:21] VITALS: BP 114/77
== END 2021-04-02 11:25 | disposition home or self-care (01) ==
LOC: M ED 10:22
DX: R21 Rash and other nonspecific skin eruption (principal); T50.Z95A Adverse effect of other vaccines and biological substances, initial encounter; Y92.89 Other specified places as the place of occurrence of the external cause; Z88.2 Allergy status to sulfonamides; Z79.899 Other long term (current) drug therapy